=== PATIENT | male | born 1955 | race African-American/Black ===

== ENCOUNTER 2021-05-02 14:23 | Emergency (ER) | payer MEDICARE ==
[~2021-05-02] VITALS: Ht 165.1 cm; Wt 64.0 kg
[2021-05-02] MEDS ORDERED: OXYC-100 MT (16:13)
[2021-05-02] MEDS ORDERED: HYDROCODONE/ACETAMINOPHEN 5/325MG TABLET PO NR (16:15)
[2021-05-02 16:41] VITALS: BP 136/73
== END 2021-05-02 16:43 | disposition home or self-care (01) ==
LOC: ER 14:48
DX: M79.89 Other specified soft tissue disorders (principal); M25.561 Pain in right knee; R03.0 Elevated blood-pressure reading, without diagnosis of hypertension
CPT/HCPCS: 73562; 93971; 99284

== ENCOUNTER 2023-06-29 01:23 | Inpatient (IN) | payer MEDICARE, OTHER ==
[~2023-06-29] VITALS: Ht 175.3 cm; Wt 88.0 kg
[~2023-06-29 01:23] MED LIST: OXYC-100 MT
[2023-06-29 02:02] VITALS: PULSE 99; RESP 16; O2SAT 97
[2023-06-29] MEDS: ALBUTEROL (0.083%) 2.5MG/3ML NEB HHN STA (02:02)
[2023-06-29] MEDS: IPRATROPIUM BROMIDE (0.02%) 0.5MG/2.5ML NEB HHN STA (02:02)
[2023-06-29 02:13] LABS: HEMATOCRIT. 44.3 % (42.0-52.0); HEMOGLOBIN. 15.1 g/dL (14.0-18.0); MEAN CORPUSCULAR HEMOGLOBIN 32.2 pg (28.0-32.0); MEAN CORPUSCULAR VOLUME 94.8 fL (80.0-94.0); MEAN PLATELET VOLUME 8.6 fl (7.4-10.4); PLATELET 163 x1000/uL (130-400); RED BLOOD CELL COUNT 4.68 mill/uL (4.7-6.1); RED CELL DISTRIBUTION WIDTH 12.9 % (11.6-14.6); WHITE BLOOD COUNT 7.3 x1000/uL (4.5-11.0)
[2023-06-29] MEDS: METHYLPREDNISOLONE SOD SUCC 125MG/2ML (ACT-O-VIAL) IV STA (02:16)
[2023-06-29] MEDS: MAGNESIUM 2 G PREMIX 50 ML IV ONE (02:16)
[2023-06-29 02:59] LABS: SODIUM 139 mEq/L (136-145)
[2023-06-29 03:00] LABS: CARBON DIOXIDE 25 mEq/L (21-32); CHLORIDE 105 mEq/L (98-107); GLUCOSE 124 mg/dL (70-105); POTASSIUM 3.8 mEq/L (3.5-5.1); UREA NITROGEN BLOOD 11 mg/dL (9-23)
[2023-06-29 03:01] LABS: ALANINE AMINOTRANSFERASE 34 IU/L (10-49); ALBUMIN 4.4 g/dL (3.2-4.8); ASPARTATE AMINOTRANSFERASE 57 IU/L (<34); BILIRUBIN TOTAL 1.1 mg/dL (0.1-1.0); CALCIUM 9.2 mg/dL (8.7-10.4); CREATININE 1.2 mg/dL (0.6-1.3); PROTEIN TOTAL 8.1 g/dL (6.0-8.3)
[2023-06-29 03:13] LABS: TROPONIN I HIGH SENSITIVITY 42 ng/L (3.0-53)
[2023-06-29] MEDS: HYDRALAZINE 20MG/ML VIAL IV ONE (03:42)
[2023-06-29 04:24] LABS: TROPONIN I HIGH SENSITIVITY 46 ng/L (3.0-53)
[2023-06-29 04:50] LABS: PLATELET ESTIMATE NORMAL
[2023-06-29 11:10] VITALS: PULSE 80; RESP 18; O2SAT 98
[2023-06-29] MEDS: IPRATROPIUM/ALBUTEROL 0.5-3(2.5)MG/3ML NEB HHN PRN (11:10)
[2023-06-29 16:15] VITALS: BP 170/100; PULSE 95; RESP 21; TEMP 99.5
[2023-06-29] MEDS ORDERED: ONDANSETRON HCL 4MG/2ML INJ IV PRN (16:30)
[2023-06-29] MEDS: ENOXAPARIN 40MG/0.4ML SYR SUBCUT SCH (16:53)
[2023-06-29] MEDS: ACETAMINOPHEN 325MG TABLET PO PRN (16:53)
[2023-06-29 17:03] VITALS: BP 170/87; PULSE 95; RESP 21; TEMP 99.5
[2023-06-29] MEDS: CLONIDINE 0.1MG TABLET PO PRN (17:12)
[2023-06-29] MEDS: INFLUENZA VACCINE 05/PF 0.5 ML SYRINGE IM ONE (19:15)
[2023-06-29] MEDS: PNEUMOCOCCAL 23-VAL P-SAC VAC 0.5 ML IM ONE (19:15)
[2023-06-29 20:00] VITALS: BP 128/71; PULSE 91; RESP 20; TEMP 97.9
[2023-06-29] MEDS: OSELTAMIVIR 75MG CAPSULE PO SCH (21:12)
[2023-06-29 23:49] VITALS: PULSE 77; RESP 18; O2SAT 97
[2023-06-30] VITALS (10 sets, daily range): BP systolic 115–147; BP diastolic 69–93; PULSE 78–101; RESP 18–22; TEMP 97.7–99; O2SAT 95–97
[2023-06-30 01:11] LABS: CREATINE KINASE MB FRACTION 18.2 ng/mL (0.5-3.6)
[2023-06-30 08:56] LABS: CREATINE KINASE MB FRACTION 17.8 ng/mL (0.5-3.6)
[2023-06-30] MEDS: DEXT 5%/0.45% NACL 1000ML 1,000 ML IV SCH (14:58)
[2023-06-30] MEDS ORDERED: METHYLPREDNISOLONE SOD SUCC 40MG VIAL IV NR (22:30)
[2023-06-30] MEDS: METHYLPREDNISOLONE SOD SUCC 40MG/ML (ACT-O-VIAL) IV NR (23:05)
[2023-07-01] VITALS (9 sets, daily range): BP systolic 125–146; BP diastolic 72–87; PULSE 65–107; RESP 18–22; TEMP 97.2–98.4; O2SAT 98–99
[2023-07-01] MEDS: PREDNISONE 20MG TABLET PO SCH (13:57)
[2023-07-01 15:00] LABS: BG BASE EXCESS 0.8 mmol/L (-2.0-2.0); BG CARBOXYHEMOGLOBIN 0.4 % (0.5-1.5); BG FRACTION INSPIRED OXYGEN 21; BG METHEMOGLOBIN 0.2 % (0.0-1.5); BG OXYGEN SATURATION 88.9 % (92.0-98.5); BG OXYHEMOGLOBIN 88.4 % (94.0-97.0); BG PCO2 43.9 mmHg (35.0-45.0); BG PH 7.391 (7.350-7.450); BG PO2 57.7 mmHg (75.0-100.0); BG SAMPLE SITE LEFT BRACHIAL; BG TOTAL HEMOGLOBIN 14.7 g/dL (12.0-18.0); BG VENT MODE ROOM AIR
[2023-07-01 17:50] LABS: BASOPHILS % 0.4 % (0.0-2.0); EOSINOPHILS % 0.8 % (0.0-5.0); HEMATOCRIT. 42.4 % (42.0-52.0); HEMOGLOBIN. 14.4 g/dL (14.0-18.0); MEAN CORPUSCULAR HEMOGLOBIN 32.5 pg (28.0-32.0); MEAN CORPUSCULAR HGB CONC 34.1 g/dL (31.0-37.0); MEAN CORPUSCULAR VOLUME 95.4 fL (80.0-94.0); MEAN PLATELET VOLUME 9.4 fl (7.4-10.4); MONOCYTES % 4.1 % (2.0-8.0); NEUTROPHILS % 80.7 % (40.0-76.0); PLATELET 174 x1000/uL (130-400); RED BLOOD CELL COUNT 4.44 mill/uL (4.7-6.1); RED CELL DISTRIBUTION WIDTH 12.7 % (11.6-14.6); WHITE BLOOD COUNT 6.8 x1000/uL (4.5-11.0)
[2023-07-01 17:54] LABS: ALANINE AMINOTRANSFERASE 32 IU/L (10-49); ASPARTATE AMINOTRANSFERASE 44 IU/L (<34); BILIRUBIN TOTAL 0.7 mg/dL (0.1-1.0); CALCIUM 8.9 mg/dL (8.7-10.4); CARBON DIOXIDE 28 mEq/L (21-32); CHLORIDE 105 mEq/L (98-107); CREATINE KINASE 953 IU/L (46-171); CREATININE 1.2 mg/dL (0.6-1.3); GLUCOSE 114 mg/dL (70-105); PROTEIN TOTAL 7.4 g/dL (6.0-8.3); SODIUM 139 mEq/L (136-145); UREA NITROGEN BLOOD 16 mg/dL (9-23)
[2023-07-02] VITALS: BP 128/61; PULSE 89; RESP 20; TEMP 97.3
[2023-07-02 04:00] VITALS: BP 130/70; PULSE 86; RESP 20; TEMP 98.5
[2023-07-02 04:16] VITALS: PULSE 82; RESP 20
[2023-07-02 08:11] VITALS: BP 122/71; PULSE 79; RESP 18; TEMP 98.5
[2023-07-02 12:00] VITALS: BP 147/70; PULSE 81; RESP 18; TEMP 97.9
[2023-07-02] MEDS ORDERED: TAM75 MT (14:31)
[2023-07-02] MEDS ORDERED: MED4 MT (14:31)
[2023-07-02 14:57] VITALS: BP 142/75; PULSE 75; TEMP 98; O2SAT 97
== END 2023-07-02 16:00 | disposition home or self-care (01) | DRG 194 ==
LOC: ER 01:23 → EEVIPCON 01:23 → 8WST 03:04
PROVIDERS: ADMIT Internal Medicine; ATTEND Internal Medicine
DX: J10.1 Influenza due to other identified influenza virus with other respiratory manifestations (principal); I50.30 Unspecified diastolic (congestive) heart failure; J44.89 Other specified chronic obstructive pulmonary disease; Z20.822 Contact with and (suspected) exposure to COVID-19; I11.0 Hypertensive heart disease with heart failure; Z96.659 Presence of unspecified artificial knee joint
CPT/HCPCS: 36415; 36600; 71045; 71250; 80053; 82375; 82550; 82553; 82805; 83880; 84484; 85025; 85379; 87426; 87804; 93005; 93306; 94640; 99291; J0360; J1650; J2920; J2930; J3475; J7512

== ENCOUNTER 2024-04-29 19:11 | Emergency (ER) | payer MEDICARE ==
[~2024-04-29] VITALS: Ht 175.3 cm; Wt 85.0 kg
[~2024-04-29 19:11] MED LIST changes: +METH4TAB95 MT; +TAM75 MT
[2024-04-29 19:15] VITALS: O2SAT 98
[2024-04-29] MEDS ORDERED: IBUPROFEN 400MG TABLET PO ONE (19:45)
[2024-04-29] MEDS ORDERED: HYDROCODONE/ACETAMINOPHEN 5/325MG TABLET PO ONE (19:45)
[2024-04-29] MEDS ORDERED: IBUP-2028 MT (21:45)
[2024-04-29] MEDS ORDERED: HYDR-4001 MT (21:45)
[2024-04-29] MEDS ORDERED: LIDO700A15 TP (21:48)
[2024-04-29] MEDS: LIDOCAINE 5% PATCH TOP SCH (21:53)
[2024-04-29] MEDS: HYDROCODONE/ACETAMINOPHEN 5/325MG TABLET PO NR (21:53)
[2024-04-29] MEDS: IBUPROFEN 400MG TABLET PO NR (21:53)
[2024-04-29 22:02] VITALS: BP 142/89; PULSE 82; RESP 18; TEMP 37.05852; O2SAT 98
== END 2024-04-29 22:03 | disposition home or self-care (01) ==
LOC: ER 19:11
DX: M89.312 Hypertrophy of bone, left shoulder (principal); S43.402A Unspecified sprain of left shoulder joint, initial encounter; Z96.659 Presence of unspecified artificial knee joint; Z79.899 Other long term (current) drug therapy; W18.39XA Other fall on same level, initial encounter; Y93.89 Activity, other specified; Y92.89 Other specified places as the place of occurrence of the external cause; Y99.8 Other external cause status
CPT/HCPCS: 73030; 73060; 99284; A4565